=== PATIENT | female | born 1975 | race Caucasian/White ===

== ENCOUNTER → 2020-01-21 | Outpatient (CLI) | payer BC ==
[~2020-01-21] MED LIST: PRENATAL1 TA1 PO; SUDAFED30 MG PO
== END ==
LOC: MC.RAD 09:52
DX: R92.0 Mammographic microcalcification found on diagnostic imaging of breast (principal); Z98.82 Breast implant status

== ENCOUNTER 2020-06-16 15:30 | Outpatient (RCR) | payer BC | END 2020-09-09 | disposition still patient (30) | LOC: MKS.ESL.PT | DX: I89.0 Lymphedema, not elsewhere classified (principal); Z85.3 Personal history of malignant neoplasm of breast; Z90.13 Acquired absence of bilateral breasts and nipples ==